=== PATIENT | male | born 1975 | race Caucasian/White ===

== ENCOUNTER 2018-10-10 10:09 | Emergency (ER) | payer OTHER, MEDICAID, SELFPAY ==
[2018-10-10 10:24] VITALS: BP 129/79; PULSE 101; RESP 24; O2SAT 95; BMI 57.4
--- NOTE | 2018-10-10 13:10 | ED_ITS ---
HPI - Recheck/Abnormal Lab/Rx General Chief Complaint: Recheck/Abnormal Lab/Rx Stated Complaint: anxiety Time Seen by Provider: 10/10/18 10:49 Source: patient and EMS (mom came via EMS and patient checked in after arrival with mom) Limitations: no limitations History of Present Illness HPI narrative: This a 43-year-old male who comes to the emergency department requesting that his prescriptions be refilled. He actually arrived with his mother via EMS, she is being evaluated for possible CVA. Patient states that he and his mom have both run out of her medications. They normally have a ride to their doctor's office but the people that normally give him a ride have moved and they do not have transportation. He states that they are trying to establish with primary care here locally so that they do not require all long distance transportation. Patient states he has had a recent cold but denies any other symptoms. He states that his psychiatric issues have been controlled so far. Related Data Home Medications Medication Instructions Recorded Confirmed aspirin 325 mg PO DAILY 10/10/18 10/10/18 cetirizine [Zyrtec] 10 mg PO DAILY 10/10/18 10/10/18 gabapentin 400 mg PO TID 10/10/18 10/10/18 lamotrigine 150 mg PO TID 10/10/18 10/10/18 venlafaxine 150 mg PO BID 10/10/18 10/10/18 Previous Rx's Medication Instructions Recorded gabapentin 400 mg PO TID #60 cap 10/10/18 lamotrigine 150 mg PO TID #60 tab 10/10/18 venlafaxine 150 mg PO BID #30 tab 10/10/18 Allergies Allergy/AdvReac Type Severity Reaction Status Date / Time Penicillins Allergy Verified 10/10/18 10:24 Review of Systems Review of Systems All systems reviewed & are unremarkable except as noted in HPI and below ENT Ears, Nose, Mouth, and Throat: Reports nasal congestion Cardiovascular Denies dyspnea Respiratory Reports cough, Denies excessive phlegm production and Denies dyspnea PFSH Social History Smoking Status: Current every day smoker Exam Narrative Exam Narrative: GENERAL: Alert and oriented x three, obese male in mild distress. HEENT: Head normocephalic, atraumatic, EOMI, pupils reactive, face symmetric, moist mucous membranes NECK: Supple, full range of motion CARDIOVASCULAR: Regular rate and rhythm without murmurs, rubs or gallops. RESPIRATORY: Breath sounds equal bilaterally, no wheezes rales or rhonchi. ABDOMEN: Soft, nontender. Normoactive bowel sounds all 4 quadrants. No guarding or rebound, rigidity, no mass : No CVA tenderness EXTREMITIES: Normal range of motion, no clubbing or edema. Neurovascularly intact NEUROLOGICAL: Cranial nerves II through XII grossly intact. Moving all extremities SKIN: Warm, dry, no petechiae, no rashes or lesions. Initial Vital Signs Initial Vital Signs: Vital Signs Pulse Rate 101 H 10/10/18 10:24 Respiratory Rate 24 10/10/18 10:24 Blood Pressure 129/79 10/10/18 10:24 Pulse Oximetry 95 10/10/18 10:24 Course Vital Signs - 8 hr 10/10/18 10:24 Pulse Rate 101 H Respiratory Rate 24 Blood Pressure 129/79 Pulse Oximetry 95 MDM - Recheck/Abnormal Lab/Rx MDM Narrative Medical decision making narrative: Discussed with patient if he is able to get us on appropriate medication list we can refill his psychiatric medications. His gabapentin, lamotrigine and left venlafaxine were refilled. I did receive a call from the pharmacy that states he was taking 75 mg once daily about a year ago but they did not have anything more recent. Discharge Plan Departure Patient Disposition: Home Clinical Impression: Prescription refill Discharge Date/Time: 10/10/18 13:42 Interventions: ED Discharge Assessment Last Done: 10/10/18 13:23 Activity Restrictions/Additional Instructions: Follow up with primary care for your future medication refills. Continue your home and over the counter mediations as prescribed. These medications in combination can make you sleepy do not drive, perform hazards activities or make any major decisions after taking. Return to the ER for any new or concerning symptoms, shortness of breath, chest , persistent vomiting, passing out, or any other new or concerning symptoms. Prescriptions: New venlafaxine 100 mg tablet 150 mg PO BID Qty: 30 RF: 0 lamotrigine 150 mg tablet 150 mg PO TID Qty: 60 RF: 0 gabapentin 400 mg capsule 400 mg PO TID Qty: 60 RF: 0 No Action gabapentin 400 mg Capsule 400 mg PO TID RF: 0 lamotrigine 150 mg Tablet 150 mg PO TID RF: 0 cetirizine [Zyrtec] 10 mg Tablet 10 mg PO DAILY RF: 0 aspirin 325 mg Tablet 325 mg PO DAILY RF: 0 venlafaxine 150 mg Capsule,Extended Release 24hr 150 mg PO BID RF: 0
== END 2018-10-10 13:42 | disposition home or self-care (01) ==
PROVIDERS: Emergency Provider Emergency Medicine; Family Provider Physician Assistant
DX: Z76.0 Encounter for issue of repeat prescription (principal)
CPT/HCPCS: 99282

== ENCOUNTER 2018-12-04 20:44 | Emergency (ER) | payer OTHER, MEDICAID, SELFPAY ==
--- NOTE | 2018-12-04 20:51 | DI.RAD.S_ITS ---
PROCEDURE: XR CHEST 1V INDICATIONS: chest pain TECHNIQUE: One view of the chest was acquired. COMPARISON: None. FINDINGS: Surgical changes and devices: None. Lungs and pleura: Lungs are clear. No pleural effusions or pneumothorax. Mediastinum: Mediastinal contours appear normal. Heart size is enlarged. Bones and chest wall: No suspicious bony lesions. Overlying soft tissues appear unremarkable. IMPRESSION: No acute pulmonary pathology. Dictated by: Yahir Chong M.D. on 12/04/2018 at 21:09 Approved by: Yahir Chong M.D. on 12/04/2018 at 21:10
[2018-12-04 20:53] VITALS: BP 155/113; PULSE 120; RESP 15; TEMP 36.8; O2SAT 94; BMI 50.8
[2018-12-04 21:03] VITALS: PULSE 117; RESP 22; O2SAT 97
[2018-12-04 21:41] LABS: Hematocrit 46.6 % (41-53); Hemoglobin 15.8 g/dL (13.5-17.5); Mean Corpuscular HGB Conc 33.9 % (30-36); Mean Corpuscular Hemoglobin 31.1 PG (26-34); Mean Corpuscular Volume 91.7 fL (80-100); Platelet Count 361 X10^3/uL (150-400); Red Blood Cell Count 5.09 X10^6/uL (4.5-5.9); Red Cell Distribution Width 14.5 % (11.6-14.8); White Blood Cell Count 7.1 X10^3/uL (4.5-11.0)
[2018-12-04 21:52] LABS: Alanine Aminotransferase 84 IU/L (21-72); Albumin 4.4 g/dL (3.5-5.0); Alkaline Phosphatase 111 U/L (38-126); Aspartate Aminotransferase 46 IU/L (17-59); BUN Creatinine Ratio 11.4 (6-22); Bilirubin Total 0.4 mg/dL (0.2-1.3); Blood Urea Nitrogen 8 mg/dL (9-20); Calcium 8.7 mg/dL (8.4-10.2); Carbon Dioxide 26 mmol/L (22-32); Chloride 98 mmol/L (98-107); Creatine Kinase 72 U/L (55-170); Estimated Glomerular Filt Rate > 60.0 mL/min (>60); Globulin 4.2 g/dL (1.7-4.1); Glucose 126 mg/dL (70-100); HEMOLYSIS < 15 (0-50); Lipase 25 U/L (23-300); Potassium 4.1 mmol/L (3.4-5.1); Sodium 139 mmol/L (137-145); Total Protein 8.6 g/dL (6.3-8.2)
[2018-12-04 21:56] LABS: Add Manual Diff / Slide Review NO; Basophils Absolute Auto 0 /uL (0-100); Basophils Percent Auto 0.7 % (0-2); Eosinophils Absolute Auto 200 /uL (0-450); Eosinophils Percent Auto 2.1 % (2-4); Lymphocytes Absolute Auto 1400 /uL (1100-4500); Lymphocytes Percent Auto 18.8 % (25-40); Monocytes Absolute Auto 700 /uL (0-900); Monocytes Percent Auto 9.7 % (3-14); Neutrophils Absolute Auto 5000 /uL (1500-7000); Neutrophils Percent Auto 68.7 % (50-75)
--- NOTE | 2018-12-04 21:58 | ED.CHESTPAIN ---
HPI - Chest Pain General Chief Complaint: Chest Pain Stated Complaint: Chest Pain Time Seen by Provider: 12/04/18 20:51 Source: patient, family and EMS Mode of arrival: EMS Limitations: no limitations History of Present Illness HPI narrative: 43-year-old male smoker with history of cardiac disease presents with a chief complaint of sharp and stabbing chest pain over the course of the day. His pain is worse with a deep breath and if he moves. He denies associated symptoms such as dizziness, weakness or lightheadedness. He has very minimal shortness of breath and denies any recent cough, fever or chills. He denies any history of blood clot, recent travel or injury. MD complaint: chest pain Onset (ago): hour(s) Duration: intermittent Onset: during rest Pain location: right chest Severity: mild Quality: sharp Pain radiation: none Relieving factors: rest Exacerbating factors: inspiration, palpation and movement Treatments prior to arrival chest pain: none Related Data Home Medications Medication Instructions Recorded Confirmed aspirin 325 mg PO DAILY 10/10/18 12/04/18 cetirizine [Zyrtec] 10 mg PO DAILY 10/10/18 12/04/18 gabapentin 400 mg PO TID 10/10/18 12/04/18 lamotrigine 150 mg PO TID 10/10/18 12/04/18 venlafaxine 300 mg PO DAILY 10/10/18 12/04/18 Previous Rx's Medication Instructions Recorded furosemide [Lasix] 40 mg PO DAILY #5 tab 12/05/18 Allergies Allergy/AdvReac Type Severity Reaction Status Date / Time Penicillins Allergy Verified 12/04/18 20:53 Review of Systems Constitutional Denies chills, Denies fever(s), Denies lethargy and Denies weakness Eyes Denies change in vision, Denies eye discharge, Denies irritation and Denies loss of vision ENT Ears, Nose, Mouth, and Throat: Denies change in voice, Denies neck pain and Denies sore throat Cardiovascular Reports chest pain, Denies irregular heart rhythm, Denies lightheadedness, Denies palpitations, Denies dyspnea, Denies dyspnea on exertion and Denies orthopnea Respiratory Denies cough, Denies dyspnea, Denies dyspnea on exertion and Denies wheezing Gastrointestinal Gastrointestinal: Denies abdominal pain, Denies change in bowel habits, Denies diarrhea, Denies nausea and Denies vomiting Genitourinary Denies hematuria, Denies flank pain, Denies urinary incontinence and Denies urinary urgency Musculoskeletal Denies neck pain Integumentary/Breasts Denies pruritus, Denies erythema, Denies rash and Denies wounds Neurologic Denies confusion, Denies loss of vision and Denies weakness Psychiatric Denies anxiety, Denies confusion, Denies depression, Denies homicidal ideation and Denies suicidal ideation Endocrine Denies palpitations Hematologic/Lymphatic Denies easy bruising Allergic/Immunologic Denies wheezing PFSH Social History Smoking Status: Current every day smoker Social History Smoking Status: Current every day smoker Exam Narrative Exam Narrative: GENERAL: 43-year-old male morbidly obese male in no obvious distress, resting comfortably and playing games on his phone. A bit disheveled and unkempt HEAD: Atraumatic. Normocephalic. No temporal or scalp tenderness. EYES: Pupils equal round and reactive. Extraocular motions intact. No scleral icterus. No injection or drainage. ENT: Nose without bleeding, purulent drainage or septal hematoma. Throat without erythema, tonsillar hypertrophy or exudate. Uvula midline. Airway patent. NECK: Trachea midline. No JVD or lymphadenopathy. Supple, nontender, no meningeal signs. CARDIOVASCULAR: Regular rate and rhythm without murmurs, gallops, or rubs. Sharp reproduceable anterior chest pain. RESPIRATORY: Clear to auscultation. Breath sounds equal bilaterally. No wheezes, rales, or rhonchi. GASTROINTESTINAL: Abdomen soft, non-tender, nondistended. No hepato-splenomegaly, or palpable masses. No guarding. EXTREMITIES: No clubbing, cyanosis, or edema. No joint tenderness, effusion, or edema noted. BACK: Nontender without deformity or crepitance. No flank tenderness. NEURO: AOx3. SKIN: No rash or erythema. Initial Vital Signs Initial Vital Signs: Vital Signs Temperature 98.2 F 12/04/18 20:53 Pulse Rate 120 H 12/04/18 20:53 Respiratory Rate 15 12/04/18 20:53 Blood Pressure 155/113 H 12/04/18 20:53 Pulse Oximetry 94 12/04/18 20:53 Course Orders Ordered: ED Orders 12/04/18 20:51 XR chest 1V Stat EKG-12 Lead Stat 12/04/18 21:33 Complete Blood Count AUTO DIFF Stat Comprehensive Metabolic Panel Stat Lipase Stat Troponin & CK Cardiac Panel Stat 12/04/18 22:55 CT angio chest PE protocol Stat Sodium Chloride (Normal Saline 0.9%) 1,000 mls @ 150 mls/hr IV CONT DASH Last Admin: 12/04/18 21:02 Dose: Not Given Discontinued Medications Aspirin (Aspirin Chew) 324 mg PO NOW ONE Stop: 12/04/18 20:52 Last Admin: 12/04/18 21:02 Dose: Not Given Furosemide (Lasix) 40 mg IV NOW ONE Stop: 12/05/18 00:15 Furosemide (Lasix) 40 mg PO NOW ONE Stop: 12/05/18 00:23 Lorazepam (Ativan) 1 mg IV NOW ONE Stop: 12/04/18 23:17 Last Admin: 12/04/18 23:25 Dose: 1 mg Vital Signs - 8 hr 12/04/18 20:53 12/04/18 21:03 12/04/18 22:00 Temperature 98.2 F Pulse Rate 120 H 117 H 108 H Respiratory Rate 15 22 18 Blood Pressure 155/113 H Blood Pressure [Left Arm] 149/107 H Pulse Oximetry 94 97 94 12/04/18 23:01 Temperature Pulse Rate 99 H Respiratory Rate 10 L Blood Pressure Blood Pressure [Left Arm] 170/102 H Pulse Oximetry 93 MDM - Chest Pain Medical Records Data Attestation: I reviewed the patient's medical records. Lab Data Attestation: I reviewed the patient's lab results. Result diagrams: 12/04/18 21:33 12/04/18 21:33 Lab Results 12/04/18 12/04/18 Range/Units 21:33 21:33 WBC 7.1 (4.5-11.0) X10^3/uL RBC 5.09 (4.5-5.9) X10^6/uL Hgb 15.8 (13.5-17.5) g/dL Hct 46.6 (41-53) % MCV 91.7 (80-100) fL MCH 31.1 (26-34) PG MCHC 33.9 (30-36) % RDW 14.5 (11.6-14.8) % Plt Count 361 (150-400) X10^3/uL Neut % (Auto) 68.7 (50-75) % Lymph % (Auto) 18.8 L (25-40) % Jay % (Auto) 9.7 (3-14) % Eos % (Auto) 2.1 (2-4) % Baso % (Auto) 0.7 (0-2) % Neut # (Auto) 5000 (8626-3554) /uL Lymph # (Auto) 1400 (5896-8185) /uL Jay # (Auto) 700 (0-900) /uL Eos # (Auto) 200 (0-450) /uL Baso # (Auto) 0 (0-100) /uL Total Counted Cancelled Seg Neutrophils % Cancelled Band Neutrophils % Cancelled Lymphocytes % (Manual) Cancelled Atypical Lymphs % Cancelled Monocytes % (Manual) Cancelled Eosinophils % (Manual) Cancelled Basophils % (Manual) Cancelled Metamyelocytes % Cancelled Myelocytes % Cancelled Promyelocytes % Cancelled Blast Cells % Cancelled Neutrophils # (Manual) Cancelled Nucleated RBCs Cancelled Differential Comment Cancelled Hypersegmented Neuts Cancelled Hypogranular Neuts Cancelled Reactive Lymphocytes Cancelled Plasma Cells Cancelled Smudge Cells Cancelled Other Cell Type Cancelled Toxic Granulation Cancelled Toxic Vacuolation Cancelled Dohle Bodies Cancelled Juan Rods Cancelled WBC Morphology Comment Cancelled Platelet Estimate Cancelled Clumped Platelets Cancelled Plt Morphology Comment Cancelled RBC Morphology Cancelled Dimorphic RBCs Cancelled Polychromasia Cancelled Hypochromasia Cancelled Poikilocytosis Cancelled Basophilic Stippling Cancelled Anisocytosis Cancelled Microcytosis Cancelled Macrocytosis Cancelled Spherocytes Cancelled Pappenheimer Bodies Cancelled Sickle Cells Cancelled Target Cells Cancelled Tear Drop Cells Cancelled Ovalocytes Cancelled Stomatocytes Cancelled Helmet Cells Cancelled Wood-Clare Bodies Cancelled [place] Rings Cancelled Whiting Cells Cancelled Acanthocytes (Spur) Cancelled Rouleaux Cancelled Schistocytes Cancelled Sodium 139 (137-145) mmol/L Potassium 4.1 (3.4-5.1) mmol/L Chloride 98 (98-107) mmol/L Carbon Dioxide 26 (22-32) mmol/L BUN 8 L (9-20) mg/dL Creatinine 0.70 (0.66-1.25) mg/dL Estimated GFR > 60.0 (>60) mL/min BUN/Creatinine Ratio 11.4 (6-22) Glucose 126 H (70-100) mg/dL Calcium 8.7 (8.4-10.2) mg/dL Total Bilirubin 0.4 (0.2-1.3) mg/dL AST 46 (17-59) IU/L ALT 84 H (21-72) IU/L Alkaline Phosphatase 111 (38-126) U/L Total Creatine Kinase 72 (55-170) U/L CK-MB (CK-2) TNP CK-MB (CK-2) Rel Index TNP Troponin I < 0.012 (0.01-0.034) ng/mL Total Protein 8.6 H (6.3-8.2) g/dL Albumin 4.4 (3.5-5.0) g/dL Globulin 4.2 H (1.7-4.1) g/dL Albumin/Globulin Ratio 1.0 (1.0-2.8) Lipase 25 (23-300) U/L Imaging Data Chest x-ray: Radiologist's impression: [place] [address] XRay Report Signed Patient: Mikey Lainez [facility]#: [id number] : 1975Acct:[id number] Age/Sex: 43 / MDate of Service: 12/04/18 Loc: Accession Number: [id number] Procedure: XR chest 1V Ordering Provider: Bennie Martines D.O. PROCEDURE: XR CHEST 1V INDICATIONS: chest pain TECHNIQUE: One view of the chest was acquired. COMPARISON: None. FINDINGS: Surgical changes and devices: None. Lungs and pleura: Lungs are clear. No pleural effusions or pneumothorax. Mediastinum: Mediastinal contours appear normal. Heart size is enlarged. Bones and chest wall: No suspicious bony lesions. Overlying soft tissues appear unremarkable. IMPRESSION: No acute pulmonary pathology. Dictated by: Yahir Chong M.D. on 12/04/2018 at 21:09 CT scan - chest: Radiologist's impression: CHF, no acute PE ECG Data Interpretation: EKG is normal sinus rhythm rate [105 ] and free of any signs of ischemia or ectopy. No ST segmental elevation or depression. No T wave inversions MDM Narrative Medical decision making narrative: Multiple etiologies for patient's symptoms considered including: [Cardiac ischemia, pneumonia, pneumothorax, costochondritis, pleurisy versus other] Patient's symptoms improved or duration of stay with above-stated therapies. Findings and discharge diagnosis discussed with patient/family followed by verbalization of understanding Return precautions discussed with patient/family whom verbalize understanding. Discharge Plan Departure Patient Disposition: Home Clinical Impression: Atypical chest pain CHF (congestive heart failure) Qualifiers: Heart failure type: unspecified Heart failure chronicity: unspecified Qualified Code(s): I50.9 - Heart failure, unspecified Instructions: DI for Atypical Chest Pain Activity Restrictions/Additional Instructions: *You have been diagnosed with [ atypical chest pain, CHF] *What to do: *Take medications as directed *Follow up with your primary care provider in 2-3 days, call for an appointment. Let them know you were seen in the Emergency Department and that we ask that you be seen in follow up *Return to ER if you should have any new, worsening or concerning symptoms, such as [ ] Prescriptions: New furosemide [Lasix] 40 mg tablet 40 mg PO DAILY Qty: 5 RF: 0 No Action gabapentin 400 mg Capsule 400 mg PO TID RF: 0 lamotrigine 150 mg Tablet 150 mg PO TID RF: 0 cetirizine [Zyrtec] 10 mg Tablet 10 mg PO DAILY RF: 0 aspirin 325 mg Tablet 325 mg PO DAILY RF: 0 venlafaxine 150 mg Capsule,Extended Release 24hr 300 mg PO DAILY RF: 0
[2018-12-04 22:00] VITALS: BP 149/107; PULSE 108; RESP 18; O2SAT 94
[2018-12-04 22:03] LABS: Troponin I < 0.012 ng/mL (0.01-0.034)
--- NOTE | 2018-12-04 22:55 | DI.CT.S_ITS ---
PROCEDURE: CT ANGIO CHEST PE PROTOCOL INDICATIONS: Shortness of breath, Chest pain, tachycardia, hypoxic, smoker, pleuritic TECHNIQUE: After the administration of intravenous contrast, 2 mm thick sections acquired from the pulmonary apices to the posterior costophrenic angles. 3-dimensional maximum intensity projection (MIP) coronal and sagittal reformats were then acquired through the thorax. For radiation dose reduction, the following was used: automated exposure control, adjustment of mA and/or kV according to patient size. COMPARISON: [facility], CR, XR CHEST 1V, 12/04/2018, 20:55. FINDINGS: Image quality: Excellent. Pulmonary arteries: Pulmonary arteries are normal in size, and demonstrate no intraluminal filling defects to suggest central pulmonary embolism. Lungs and pleura: No lung consolidation. There is a 1.7 x 0.9 x 0.6 cm bilobed nodule in the right middle lobe (series 5, image 34). 4 mm nodule noted in the left lower lobe (series 6, image 44). Mild, diffuse ground glass opacification of the lungs bilaterally with areas of sparing in the lung bases. Subtle interstitial prominence noted in the lungs bilaterally with slight central predominance. No pleural effusions or pneumothorax. Central and peripheral airways are patent. Mediastinum: Heart size is enlarged, without pericardial effusion. No mediastinal or hilar adenopathy. Thoracic aorta is normal in caliber and enhancement. Esophagus is normal in caliber, without hiatal hernia. Bones and chest wall: No suspicious bony lesions. Ribs and thoracic spine appear intact throughout. Thyroid gland is within normal limits where visualized. No axillary or supraclavicular adenopathy. Abdomen: Fatty infiltration of the liver noted. Visualized upper abdominal solid organs appear normal in the early arterial phase of enhancement. IMPRESSION: 1. No pulmonary embolus. 2. Cardiomegaly. 3. Subtle interstitial prominence and groundglass opacification involving the lungs suspicious for CHF. Please correlate with clinical and laboratory data. 4. 1.8 cm nodule in the right middle lobe. Recommend CT scan of the chest in 3 months or PET/CT scan based on criteria outlined below. Fleischner Society criteria for SOLID lung nodule followup. Nodule size (mm)Low-risk patientHigh-risk patient<6 (single or multiple)No routine followup.Optional CT at 12 months. 6-8 (single or multiple)CT at 6-12 months, then optional CT at 18-24 mo.CT at 6-12 months, then CT at 18-24 months. >8 (single)CT at 3 months, PET-CT, or biopsy. Same as for low-risk pts. >8 (multiple)CT at 3-6 months, then optional CT at 18-24 mo.CT at 3-6 months, then CT at 18-24 months. Recommendations do not apply to lung cancer screening, patients with immunosuppression, or patients with known primary cancer. Dictated by: Misti Johnson MD, PhD on 12/05/2018 at 7:54 Approved by: Misti Johnson MD, PhD on 12/05/2018 at 8:02
[2018-12-04 23:01] VITALS: BP 170/102; PULSE 99; RESP 10; O2SAT 93
[2018-12-04] MEDS: LORazepam 2 MG/ML SYRINGE 1 MG IV (23:25)
--- NOTE | 2018-12-04 23:26 | PC.NURSE ---
Patient having anxiety laying flat for CT angio. Provider notified. Administered 1mg lorazepam per order. Patient reports some relief of anxiety and agrees to continue with imaging.
[2018-12-05 00:27] VITALS: BP 161/105; PULSE 99; RESP 12; O2SAT 96
[2018-12-05] MEDS: FUROSEMIDE 40 MG TABLET PO (00:27)
== END 2018-12-05 00:35 | disposition home or self-care (01) ==
PROVIDERS: Emergency Provider Emergency Medicine; Family Provider Physician Assistant
DX: R07.89 Other chest pain (principal)
CPT/HCPCS: 36415; 36591; 71045; 71275; 80053; 82550; 83690; 84484; 85025; 93005; 96374; 96375; 99283; 99285; J2060; Q9967

== ENCOUNTER → 2022-12-15 14:47 | Outpatient (CLI) | payer OTHER, MEDICAID, SELFPAY ==
[2022-12-15 15:39] LABS: Add Manual Diff / Slide Review NO; Basophils Absolute Auto 0 /uL (0-100); Basophils Percent Auto 0.4 % (0-2); Eosinophils Absolute Auto 200 /uL (0-450); Eosinophils Percent Auto 2.7 % (2-4); Hematocrit 45.5 % (41-53); Hemoglobin 15.6 g/dL (13.5-17.5); Lymphocytes Absolute Auto 1600 /uL (1100-4500); Lymphocytes Percent Auto 17.8 % (25-40); Mean Corpuscular HGB Conc 34.2 % (30-36); Mean Corpuscular Hemoglobin 29.2 PG (26-34); Mean Corpuscular Volume 85.3 fL (80-100); Monocytes Absolute Auto 1200 /uL (0-900); Monocytes Percent Auto 13.5 % (3-14); Neutrophils Absolute Auto 5700 /uL (1500-7000); Neutrophils Percent Auto 65.6 % (50-75); Platelet Count 369 X10^3/uL (150-400); Red Blood Cell Count 5.33 X10^6/uL (4.5-5.9); Red Cell Distribution Width 14.5 % (11.6-14.8); White Blood Cell Count 8.7 X10^3/uL (4.5-11.0)
[2022-12-15 15:58] LABS: Alanine Aminotransferase 61 IU/L (<50); Albumin 4.5 g/dL (3.5-5.0); Albumin Globulin Ratio 1.2 (1.0-2.8); Alkaline Phosphatase 117 U/L (38-126); Aspartate Aminotransferase 42 IU/L (17-59); BUN Creatinine Ratio 14.7 (6-22); Bilirubin Total 0.6 mg/dL (0.2-1.3); Blood Urea Nitrogen 10 mg/dL (9-20); Calcium 9.1 mg/dL (8.4-10.2); Carbon Dioxide 28 mmol/L (22-32); Chloride 101 mmol/L (98-107); Cholesterol 196 mg/dL (140-199); Estimated Glomerular Filt Rate > 60 mL/min (>60); Globulin 3.9 g/dL (1.7-4.1); Glucose 127 mg/dL (70-100); HDL Cholesterol 35 mg/dL (40-60); HEMOLYSIS < 15 (0-50); LDL Cholesterol Calculated 130 mg/dL (<100); Potassium 3.6 mmol/L (3.4-5.1); Sodium 139 mmol/L (137-145); Total Protein 8.4 g/dL (6.3-8.2); Triglycerides 156 mg/dL (35-150)
== END ==
PROVIDERS: PCP Family Medicine; Referring Provider Family Medicine; Visit Provider Family Medicine
DX: F31.9 Bipolar disorder, unspecified (principal); I10 Essential (primary) hypertension; Z72.0 Tobacco use
CPT/HCPCS: 36415; 80053; 80061; 83036; 85025

== ENCOUNTER → 2023-06-13 17:14 | Outpatient (CLI) | payer OTHER, MEDICAID, SELFPAY ==
--- NOTE | 2023-06-13 17:16 | DI.RAD.S_ITS ---
PROCEDURE: XR LUMBAR SPINE 2-3V INDICATIONS: chronic pain TECHNIQUE: 3 views of the lumbar spine were acquired. COMPARISON: None. FINDINGS: Bones: 5 [id number] vertebrae are present. There is multilevel trace retrolisthesis. Mild disc and foraminal narrowing is present L5-S1. No vertebral body compression fractures. No suspicious bony lesions. Soft tissues: Overlying bowel gas pattern is normal. No suspicious soft tissue calcifications. IMPRESSION: Early degenerative changes at L5-S1. Dictated by: July Howell M.D. on 06/14/2023 at 16:00 Approved by: July Howell M.D. on 06/14/2023 at 16:01
--- NOTE | 2023-06-13 17:16 | DI.RAD.S_ITS ---
PROCEDURE: XR THORACIC SPINE 2V INDICATIONS: pain TECHNIQUE: 3 views of the thoracic spine were acquired. COMPARISON: None. FINDINGS: Bones: No fractures or dislocations. No suspicious bony lesions. 12 pairs of ribs are noted, and appear intact where visualized. Minimal scattered disc desiccation. Soft tissues: No paravertebral stripe thickening. IMPRESSION: Minimal scattered disc desiccation. Dictated by: July Howell M.D. on 06/14/2023 at 16:01 Approved by: July Howell M.D. on 06/14/2023 at 16:01
== END ==
PROVIDERS: PCP Family Medicine; Referring Provider Family Medicine; Visit Provider Family Medicine
DX: M54.6 Pain in thoracic spine (principal); M54.50 Low back pain, unspecified; G89.29 Other chronic pain; M47.817 Spondylosis without myelopathy or radiculopathy, lumbosacral region
CPT/HCPCS: 72070; 72100

== ENCOUNTER → 2025-05-14 16:31 | Outpatient (CLI) | payer OTHER, SELFPAY ==
[2025-05-14 17:59] LABS: Hematocrit 44.4 % (41-53); Hemoglobin 15.9 g/dL (13.5-17.5); Mean Corpuscular HGB Conc 35.8 % (30-36); Mean Corpuscular Hemoglobin 30.9 PG (26-34); Mean Corpuscular Volume 86.3 fL (80-100); Platelet Count 315 X10^3/uL (150-400)
[2025-05-14 18:18] LABS: Hemoglobin A1C% w Est Avg Glu 4.9 % (4.0-6.0)
[2025-05-14 19:11] LABS: Alanine Aminotransferase 34 IU/L (<50); Albumin 5.1 g/dL (3.5-5.0); Albumin Globulin Ratio 1.6 (1.0-2.8); Alkaline Phosphatase 89 U/L (38-126); Blood Urea Nitrogen 15 mg/dL (9-20); Calcium 10.5 mg/dL (8.4-10.2); Carbon Dioxide 27 mmol/L (22-32); Chloride 101 mmol/L (98-107); Cholesterol 122 mg/dL (140-199); Estimated Glomerular Filt Rate > 60 mL/min (>60); Globulin 3.1 g/dL (1.7-4.1); Glucose 81 mg/dL (70-99); HDL Cholesterol 60 mg/dL (40-60); HEMOLYSIS < 15 (0-50); Potassium 4.2 mmol/L (3.4-5.1); Sodium 141 mmol/L (137-145); Total Protein 8.2 g/dL (6.3-8.2); Triglycerides 73 mg/dL (35-150)
== END ==
PROVIDERS: PCP Family Medicine; Referring Provider Family Medicine; Visit Provider Family Medicine
DX: E11.9 Type 2 diabetes mellitus without complications (principal); E78.2 Mixed hyperlipidemia; E66.01 Morbid (severe) obesity due to excess calories; F31.9 Bipolar disorder, unspecified
CPT/HCPCS: 36415; 80053; 80061; 83036; 85027